=== PATIENT | male | born 1975 | race Caucasian/White ===

== ENCOUNTER 2017-08-23 12:54 | Emergency (ER) | payer OTHER ==
[2017-08-23] VITALS (8 sets, daily range): BP systolic 87–141; BP diastolic 58–80; PULSE 76–94; RESP 16; TEMP 98.1; O2SAT 97–100
[~2017-08-23] VITALS: Ht 177.8 cm; Wt 95.5 kg
[~2017-08-23 12:54] MED LIST: BENZ100 PO; SYNT112T PO
[2017-08-23] MEDS ORDERED: SODIUM CHLOR 0.9% 1000 ML INJ 1,000 ML IV SCH (13:08)
[2017-08-23] MEDS ORDERED: FAMOTIDINE 20 MG/2 ML VIAL IV PUSH ONE (13:15)
[2017-08-23] MEDS ORDERED: methylPREDNISolone SOD SUCC 125 MG/2 ML VIAL IV PUSH ONE (13:15)
[2017-08-23] MEDS ORDERED: EPINEPHrine HCL (1:1000) 1 MG/ML VIAL IM ONE (13:15)
[2017-08-23] MEDS ORDERED: diphenhydrAMINE HCL 50 MG/ML VIAL IVP ONE (13:15)
[2017-08-23] MEDS: SODIUM CHLORIDE 0.9% FLUSH 10 ML FLUSH IV FLUSH PRN ×2 (13:24→14:12)
[2017-08-23] MEDS ORDERED: VENTAER INH (13:34)
[2017-08-23] MEDS ORDERED: VIAG50TA PO (13:34)
[2017-08-23] MEDS ORDERED: SYNT112T PO (13:34)
--- NOTE | 2017-08-23 13:36 | PD ---
HPI Chief Complaint: Allergic/Adverse Reaction Time Seen by Provider: 13:05 Travel History International Travel<30 days: No Contact w/Intl Traveler<30days: No Traveled to known affect area: No History of Present Illness HPI The patient is a 42-year-old male who presents to the emergency department for allergic reaction after ingesting pine nuts. 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 The patient accidentally ate some of the knots that were on a salad earlier today. He presents with difficulty swallowing, swelling of the throat, tingling all over, and abdominal discomfort. He denies any shortness of breath , chest tightness, or wheezing. Symptoms are moderate. Exacerbated after accidentally ingesting pine nuts, and there are no current alleviating factors. PFSH Past Medical History Cancer: No Cardiovascular Problems: No Diabetes: No Diminished Hearing: No Genitourinary: No Hepatitis: No Hiatal Hernia: No Immune Disorder: No Musculoskeletal: No Neurologic: No Psychiatric: No Respiratory: No Thyroid Disease: Yes (HYPOTHYROID) Past Surgical History Body Medical Devices: NONE Social History Alcohol Use: Yes (SOCIALLY) Tobacco Use: No Substance Use: No Allergies-Medications (Allergen,Severity, Reaction): Coded Allergies: pine nut (Unverified Allergy, Severe, rash, 08/23/17) shrimp (Unverified Allergy, Severe, THROAT SWELLING, 08/23/17) Reported Meds & Prescriptions Reported Meds & Active Scripts Active Reported Ventolin Hfa 18 GM Inh (Albuterol Sulfate) 90 Mcg/Act Aer 2 Puff INH Q4-6H PRN Viagra (Sildenafil Citrate) 50 Mg Tab 50 Mg PO DAILY PRN Synthroid (Levothyroxine Sodium) 112 Mcg Tab 112 Mcg PO DAILY Review of Systems Except as stated in HPI: all other systems reviewed are Neg HENT: Positive: Sore Throat, Other (As noted in the history of present illness) , No: Lightheadedness Cardiovascular: No: Chest Pain or Discomfort Respiratory: No: Shortness of Breath Gastrointestinal: Positive: Abdominal Pain Musculoskeletal: No: Weakness Skin: No Rash Neurologic: Positive: Sensory Disturbance (Tingling all over the body) Physical Exam Narrative GENERAL: Awake, alert, pleasant 42-year-old male who appears his stated age and is in no acute respiratory distress. SKIN: Focused skin assessment warm/dry. No visible urticaria. HEAD: Atraumatic. Normocephalic. EYES: Pupils equal and round. No scleral icterus. No injection or drainage. ENT: No nasal bleeding or discharge. Erythema posterior oropharynx. NECK: Trachea midline. No JVD. CARDIOVASCULAR: Regular rate and rhythm. No murmur appreciated. Heart rate in the 80s. RESPIRATORY: No accessory muscle use. No audible wheezing. GASTROINTESTINAL: Abdomen soft, non-tender, nondistended. No rebound tenderness. MUSCULOSKELETAL: No obvious deformities. No clubbing. No cyanosis. No edema. NEUROLOGICAL: Awake and alert. No obvious cranial nerve deficits. Motor grossly within normal limits. Normal speech. PSYCHIATRIC: Appropriate mood and affect; insight and judgment normal. Data Data Last Documented VS Vital Signs Date Time Temp Pulse Resp B/P (MAP) Pulse Ox O2 Delivery O2 Flow Rate FiO2 08/23/17 17:09 94 16 122/69 (86) 97 Room Air 08/23/17 13:00 98.1 Orders Orders Ecg Monitoring (08/23/17 13:08) Iv Access Insert/Monitor (08/23/17 13:08) Oximetry (08/23/17 13:08) Diphenhydramine Inj (Benadryl Inj) (08/23/17 13:15) Methylprednisolone So Succ Inj (Solumedr (08/23/17 13:15) Famotidine Inj (Pepcid Inj) (08/23/17 13:15) Sodium Chlor 0.9% 1000 Ml Inj (Ns 1000 M (08/23/17 13:08) Sodium Chloride 0.9% Flush (Ns Flush) (08/23/17 13:15) Epinephrine (1:1000) Inj (Adrenalin (1:1 (08/23/17 13:15) Morphine Inj (Morphine Inj) (08/23/17 14:00) Ondansetron Inj (Zofran Inj) (08/23/17 14:00) Hydroxyzine Pamoate (Vistaril) (08/23/17 15:00) Sodium Chlor 0.9% 1000 Ml Inj (Ns 1000 M (08/23/17 15:30) MDM Medical Decision Making Medical Screen Exam Complete: Yes Emergency Medical Condition: Yes Medical Record Reviewed: Yes Differential Diagnosis Differential diagnosis includes anaphylaxis, urticaria, allergic reaction, stridor. Narrative Course IV was established, labs are and the patient was placed on cardiac telemetry monitoring and continuous pulse oximetry monitoring. The patient was administered epinephrine 0.3 mg intramuscularly. The patient then received Solu -Medrol 125 mg intravenously, Benadryl 50 mg intravenously, Pepcid 20 mg intravenously with 1 L of IV fluids. The patient was then monitored in the emergency department. The patient was reevaluated at 5 PM, his symptoms have resolved. The patient already has an Epi[facility] at home[facility] The patient will be sent home on prednisone, Zantac, and Benadryl. He is advised to return if symptoms worsen or progress. Diagnosis Primary Impression: Anaphylaxis Qualified Codes: T78.2XXA - Anaphylactic shock, unspecified, initial encounter Patient Instructions: General Instructions Additional Instructions: Medications as directed. [facility] Return if symptoms worsen or progress. Carry the EpiPen you already own with you at all times. Med/Other Pt SpecificInfo: Prescription(s) given Scripts Diphenhydramine (Diphenhydramine) 25 Mg Cap 25 MG PO Q6H Y for ALLERGIES, #20 CAP 0 Refills Prov: Raghu Payton MD 08/23/17 Ranitidine (Zantac) 150 Mg Tab 150 MG PO BID for Reduce Stomach Acid for 5 Days, #10 TAB 0 Refills Prov: Raghu Payton MD 08/23/17 Prednisone (Prednisone) 20 Mg Tab 40 MG PO DAILY, #10 TAB 0 Refills Take 40 mg (2 tablets) daily for 5 days Prov: Raghu Payton MD 08/23/17 Disposition: 01 DISCHARGE HOME Condition: Stable Raghu Payton MD Aug 23, 2017 13:36
[2017-08-23] MEDS ORDERED: MORPHINE SULFATE 2 MG/ML INJ IV PUSH ONE (14:00)
[2017-08-23] MEDS ORDERED: ONDANSETRON HCL 4 MG/2 ML VIAL IV PUSH ONE (14:00)
[2017-08-23] MEDS ORDERED: SODIUM CHLOR 0.9% 1000 ML INJ 1,000 ML IV ONE (15:30)
[2017-08-23] MEDS ORDERED: ZANT150T2 PO (17:21)
[2017-08-23] MEDS ORDERED: PRED20 PO (17:21)
[2017-08-23] MEDS ORDERED: DIPH25CA PO (17:21)
== END 2017-08-23 18:10 | disposition home or self-care (01) ==
LOC: PHED 12:54
DX: T78.05XA Anaphylactic reaction due to tree nuts and seeds, initial encounter (principal); E03.9 Hypothyroidism, unspecified; Z91.018 Allergy to other foods; Z79.899 Other long term (current) drug therapy
CPT/HCPCS: 96361; 96372; 96374; 96375; 99284; J0171; J1200; J2270; J2405; J2930; J7030